=== PATIENT | male | born 1950 ===

== ENCOUNTER 2017-04-28 13:19 | Emergency (ER) | payer MEDICAID ==
[~2017-04-28] VITALS: Ht 170.2 cm; Wt 75.0 kg
[2017-04-28 13:23] VITALS: BP 156/98
[2017-04-28] MEDS ORDERED: ACETAMINOPHEN 500MG TABLET PO ONE (17:45)
== END 2017-04-28 18:07 | disposition home or self-care (01) ==
LOC: ER 13:38
DX: S43.402A Unspecified sprain of left shoulder joint, initial encounter (principal); E03.9 Hypothyroidism, unspecified; V89.2XXA Person injured in unspecified motor-vehicle accident, traffic, initial encounter; Y93.89 Activity, other specified; Y92.89 Other specified places as the place of occurrence of the external cause; Y99.8 Other external cause status
CPT/HCPCS: 29105; 73030; 99284; A4565